=== PATIENT | female | born 1945 | race Caucasian/White ===

== ENCOUNTER 2017-11-12 07:49 | Inpatient (IN) | payer MEDICARE, BC ==
[2017-11-12] MEDS ORDERED: Ibuprofen 200 MG TAB ONE (09:48)
[2017-11-12 10:33] LABS: #Lymphocytes 1.1 thou/uL (1.20-3.40); #Monocytes 0.3 thou/uL (0.11-0.59); #Neutrophils 4.2 thou/uL (1.40-6.50); %Eosinophils 0.3 % (0.0-10.0); %Lymphocytes 19.7 % (21.0-51.0); %Monocytes 5.6 % (0.0-10.0); %Neutrophils 74.4 % (42.0-75.0); Hemoglobin 12.5 g/dL (12.0-16.0); Mean Corpuscular Hemoglobin 32.4 pg (27.0-31.0); Mean Corpuscular Volume 95.3 fl (81.0-99.0); Mean Platelet Volume 6.4 fL (7.4-10.4); Platelet Count 168 thou/uL (130-400); RBC Distribution Width 11.7 % (11.5-14.5); Red Blood Cell (RBC) Count 3.87 mill/uL (4.20-5.40); White Blood Cell (WBC) Count 5.7 thou/uL (4.8-10.8)
[2017-11-12 10:58] LABS: ALT (SGPT) 15 U/L (8-55); AST (SGOT) 26 U/L (5-34); Albumin 3.9 g/dL (3.4-4.8); Alkaline Phosphatase 61 U/L (40-150); Anion Gap 13 mmol/L (10-20); BUN (Urea Nitrogen) 9 mg/dL (9.8-20.1); Bilirubin, Total 0.8 mg/dL (0.2-1.2); Calc. Creatinine Clearance 0 mL/min (70-130); Calcium 8.8 mg/dL (7.8-10.44); Carbon Dioxide 26 mmol/L (23-31); Chloride 98 mmol/L (98-107); Estimated GFR-MDRD 67; Globulin 3.2 g/dL (2.4-3.5); Glucose 110 mg/dL (80-115); Potassium 3.4 mmol/L (3.5-5.1); Protein, Total 7.1 g/dL (6.0-8.3); Sodium 134 mmol/L (136-145)
--- NOTE | 2017-11-12 11:15 | RAD ---
2 VIEWS CHEST: Date: 11/12/17 PROVIDED CLINICAL HISTORY: Cough and fever. FINDINGS: No comparisons. Cardiac silhouette is within normal limits in terms of size. There is hiatal hernia present. There is parenchymal opacity present at the left lung base that may reflect passive atelectasis or pneumonia. Small left pleural effusion is suspected. No evidence for pneumothorax. Lungs appear otherwise clear . Vascular calcification involves the aortic arch. IMPRESSION: 1. Parenchymal opacity left lung base, passive atelectasis versus pneumonia. The latter is favored. 2. Moderate hiatal hernia. POS: [facility]
[2017-11-12] MEDS ORDERED: Bisacodyl 5 MG TAB PO PRN (13:12)
[2017-11-12] MEDS ORDERED: Acetaminophen 650 MG Suppository PR PRN (13:12)
[2017-11-12] MEDS ORDERED: guaiFENesin/Dextromethorphan 10 ML UDCUP PO PRN (13:15)
[2017-11-12] MEDS ORDERED: cefTRIAXone\\ROCEPHIN 1 GM in Sodium Chloride 0.9% 100 ML IVPB SCH (13:15)
[2017-11-12] MEDS ORDERED: Potassium Chloride 20 MEQ TAB PO SCH (13:30)
--- NOTE | 2017-11-12 13:45 | HP ---
PRIMARY CARE PHYSICIAN: Dr. Renny Maldonado in [place], [place] CHIEF COMPLAINT: Cough. HISTORY OF PRESENT ILLNESS: Ms. Pearl is a pleasant 72-year-old lady who was seen at [facility] on 11/12/2017. She reports that her grandson was sick with an upper respiratory tract infection a few days ago. She also reports other family members who were sick. Five days ago, she developed a cough. Cough is pr oductive of white sputum. She also reports fevers, as high as 102.8 degrees Fahrenheit. She denies any vomiting, but reports nausea. She has not been eating well. She denies any diarrhea. She denie s any abdominal pain. She denies any chest pain or shortness of breath. She reports that she has degenerative disease of the cervical spine and is awaiting cervical fusion. She reports severe pain in the neck from coughing. She tried taking extra strength Tylenol, which did not help. She also took Benadryl yesterday. She felt dizzy on waking up. She came to the emergency room because of ongoing complaints. REVIEW OF SYSTEMS: The following complete review of systems was negative, unless otherwise mentioned in the HPI or below: Constitutional: Weight loss or gain, ability to conduct usual activities. Skin: Rash, itching. Eyes: Double vision, pain. ENT/Mouth: Nose bleeding, neck stiffness, pain, tenderness. Cardiovascular: Palpitations, dyspnea on exertion, orthopnea. Respiratory: Shortness of breath, wheezing, cough, hemoptysis, fever or night sweats. Gastrointestinal: Poor appetite, abdominal pain, heartburn, nausea, vomiting, constipation, or diarr hea. Genitourinary: Urgency, frequency, dysuria, nocturia. Musculoskeletal: Pain, swelling. Neurologic/Psychiatric: Anxiety, depression. Allergy/Immunologic: Skin rash, bleeding tendency. PAST MEDICAL HISTORY: Hypothyroidism, arthritis, brain aneurysm, dyslipidemia and hypertension. PAST SURGICAL HISTORY: Back surgery, right wrist surgery and sinus surgery. FAMILY HISTORY: Her mother had heart disease. SOCIAL HISTORY: Patient denies tobacco use, alcohol use or recreational drug use. CODE STATUS: I discussed her code status. She is FULL CODE. Her daughter, Esthela, is the substitute decision maker. ALLERGIES: CODEINE and PENICILLIN. CURRENT MEDICATIONS: Losartan 50 mg daily, Protonix 40 mg daily, metoprolol 50 mg daily, triamterene /hydrochlorothiazide 37.5/25 mg daily, levothyroxine 50 mcg daily. PHYSICAL EXAMINATION: GENERAL: On examination, Ms. Pearl is awake and alert, not in acute distress. VITAL SIGNS: Blood pressure is 113/49, pulse is 79. She is breathing at rate of 18, and saturating 96% on 3 liters of oxygen. Her T-max in the emergency room was 102.8 degrees Fahrenheit. Her oxygen saturation on room air was 88% at 9:15 hours today. EYES: No scleral icterus. No conjunctival pallor. ENT: Moist mucosal membranes, no oropharyngeal erythema or exudates. NECK: Supple, nontender, normal range of movement. Trachea is midline. RESPIRATORY: Accessory muscles of breathing are not active. Chest wall movements are symmetric bila terally. LUNGS: Clear to auscultation without wheeze, rhonchi or crepitations. CARDIOVASCULAR: S1 and S2 are heard, regular. LUNGS: Peripheral pulses palpable. No carotid bruit, no pericardial rub. ABDOMEN: Soft, nontender, bowel sounds are heard, no hepatomegaly, no splenomegaly. NEUROLOGIC: Cranial nerves II-XII intact. Deep tendon reflexes 2+. MUSCULOSKELETAL: Power is 5/5 in all 4 extremities. Normal range of movement at all major extremity joints. SKIN: No rashes or subcutaneous nodules. LYMPHATIC: No cervical lymphadenopathy. PSYCHIATRIC: Normal mood, normal affect. The patient is oriented to person, place, and time. IMAGING DATA AND LABORATORY DATA: Ms. Pearl's labs and investigations were reviewed. I reviewed he r electrocardiogram, which showed normal sinus rhythm, no ST changes to suggest an acute coronary syn drome. I also reviewed her chest x-ray, which shows left lower lobe infiltrate. She has a normal wh ite count, normal hemoglobin, normal platelet count, decreased sodium of 134, decreased potassium of 3.4, otherwise unremarkable comprehensive metabolic profile and a negative influenza screen. ASSESSMENT AND PLAN: Ms. Pearl is a pleasant 72-year-old lady who was seen at [facility] on 11/12/2017. Her problem list includes: 1. Pneumonia: Ms. Pearl is presenting with community-acquired pneumonia. She will be admitted to the hospital because of hypoxia and ongoing fevers. She will be treated with ceftriaxone and azithro mycin. Blood cultures have been sent. 2. Hyponatremia: Mild, we will recheck. 3. Hypokalemia: Replace potassium. 4. Hypertension: Monitor vital signs, titrate antihypertensives as needed. 5. Hypothyroidism: Continue Synthroid. Many thanks for allowing me to participate in your patient's care. Please feel free to contact me wi th any questions or concerns. LEVEL OF RISK: High. LEVEL OF COMPLEXITY: High.
[2017-11-12 15:47] VITALS: BMI 27.6
[2017-11-12] MEDS: cefTRIAXone\\ROCEPHIN 1 GM, Syringe 0.4 ML in Sterile Water 9.6 ML SLOW IVP SCH (16:05)
[2017-11-12] MEDS: Azithromycin 500 MG in Sodium Chloride 0.9% 250 ML 250 ML IVPB SCH (16:05)
[2017-11-12] MEDS: Acetaminophen 325 MG TAB PO PRN ×2 (16:10→20:43)
[2017-11-12] MEDS: Benzonatate 100 MG CAP PO SCH ×2 (16:10→20:43)
[2017-11-12] MEDS ORDERED: FLU VACC TS2017-18 (>65YR) 0.5 ML SYRINGE IM ONE (16:15)
[2017-11-13] MEDS: Acetaminophen 325 MG TAB PO PRN ×2 (00:48→11:36)
[2017-11-13 04:53] LABS: Anion Gap 11 mmol/L (10-20); BUN (Urea Nitrogen) 8 mg/dL (9.8-20.1); Calc. Creatinine Clearance 86 mL/min (70-130); Calcium 8.2 mg/dL (7.8-10.44); Carbon Dioxide 28 mmol/L (23-31); Chloride 97 mmol/L (98-107); Estimated GFR-MDRD 67; Glucose 108 mg/dL (80-115); Potassium 3.3 mmol/L (3.5-5.1); Sodium 133 mmol/L (136-145)
[2017-11-13 05:31] LABS: Band 15 % (5-11); Eosinophils 1 % (0-10); Hemoglobin 11.9 g/dL (12.0-16.0); Lymphocytes 19 % (21-51); MDiff Complete? YES; Mean Corpuscular HGB CONC 34.4 g/dL (32.0-36.0); Mean Platelet Volume 6.7 fL (7.4-10.4); Monocytes 3 % (0-10); Neutrophil 62 % (42-75); PLT Morphology Comment Appears Adequate; Platelet Count 152 thou/uL (130-400); RBC Distribution Width 11.6 % (11.5-14.5); RBC Morphology Normal; Red Blood Cell (RBC) Count 3.59 mill/uL (4.20-5.40); White Blood Cell (WBC) Count 4.7 thou/uL (4.8-10.8)
[2017-11-13] MEDS: Benzonatate 100 MG CAP PO SCH ×3 (07:32→20:47)
[2017-11-13] MEDS: Enoxaparin Sodium 40 MG/0.4 ML SYRINGE SC SCH (07:32)
[2017-11-13] MEDS: Guaifenesin DM 100-10/5 ML UDCUP PO PRN ×2 (11:34→20:48)
[2017-11-13] MEDS: cefTRIAXone\\ROCEPHIN 1 GM, Syringe 0.4 ML in Sterile Water 9.6 ML SLOW IVP SCH (13:34)
[2017-11-13] MEDS: Azithromycin 500 MG in Sodium Chloride 0.9% 250 ML 250 ML IVPB SCH (13:42)
[2017-11-13] MEDS: Sodium Chloride 0.9% 1,000 ML IV SCH (14:11)
[2017-11-13] MEDS: Ibuprofen 800 MG TAB PO SCH ×2 (14:48→20:47)
[2017-11-13] MEDS: Potassium Chloride 20 MEQ TAB PO SCH (17:12)
--- NOTE | 2017-11-13 17:42 | PDOC.PN ---
- Subjective Encounter Start Date: 11/13/17 Encounter Start Time: 17:40 Subjective: COUGH IS SLIGHTLY BETTER BUT I FEEL BAD - Objective Resuscitation Status: Resuscitation Status FULL:Full Resuscitation MAR Reviewed: Yes Vital Signs & Weight: Vital Signs (12 hours) Temp Pulse Resp BP Pulse Ox 11/13/17 16:58 97.8 F 73 18 111/53 L 93 L 11/13/17 12:25 100.4 F H 83 18 113/62 91 L 11/13/17 08:00 99.4 F 88 16 118/73 95 Weight Weight 192 lb 4 oz I&O: 11/12/17 11/13/17 11/14/17 05:59 06:59 06:59 Intake Total 600 Balance 600 Result Diagrams: 11/13/17 04:08 11/13/17 04:08 Phys Exam - Physical Examination Constitutional: NAD HEENT: PERRLA, moist MMs, sclera anicteric Neck: supple, full ROM RHONCHI Cardiovascular: RRR Gastrointestinal: soft, non-tender, no distention Musculoskeletal: no edema Neurological: non-focal, moves all 4 limbs Psychiatric: normal affect, A&O x 3 Skin: no rash Dx/Plan (1) HTN (hypertension) Code(s): I10 - ESSENTIAL (PRIMARY) HYPERTENSION Status: Chronic (2) PNA (pneumonia) Code(s): J18.9 - PNEUMONIA, UNSPECIFIED ORGANISM Status: Acute (3) Hypokalemia Code(s): E87.6 - HYPOKALEMIA Status: Acute (4) Hyponatremia Code(s): E87.1 - HYPO-OSMOLALITY AND HYPONATREMIA Status: Acute - Plan cont current plan of care, plan discussed w/ family, continue antibiotics, respiratory therapy REPLETE ELECTROLYTES * .
[2017-11-13] MEDS: Metoprolol Tartrate 50 MG TAB PO SCH (20:48)
[2017-11-13] MEDS: Albuterol Sulfate 1.25 MG/3 ML NEB NEB SCH (23:34)
[2017-11-14] MEDS: Sodium Chloride 0.9% 1,000 ML IV SCH ×2 (02:21→14:26)
[2017-11-14] MEDS: Acetaminophen 325 MG TAB PO PRN (04:58)
[2017-11-14] MEDS: Guaifenesin DM 100-10/5 ML UDCUP PO PRN ×3 (05:02→22:15)
[2017-11-14 05:14] LABS: Anion Gap 8 mmol/L (10-20); BUN (Urea Nitrogen) 6 mg/dL (9.8-20.1); Calc. Creatinine Clearance 100 mL/min (70-130); Calcium 8.4 mg/dL (7.8-10.44); Carbon Dioxide 31 mmol/L (23-31); Chloride 101 mmol/L (98-107); Estimated GFR-MDRD 80; Glucose 92 mg/dL (80-115); Potassium 3.5 mmol/L (3.5-5.1); Sodium 136 mmol/L (136-145)
[2017-11-14] MEDS: Albuterol Sulfate 1.25 MG/3 ML NEB NEB SCH ×3 (07:01→23:07)
[2017-11-14] MEDS: Losartan 25 MG TAB PO SCH (08:37)
[2017-11-14] MEDS: Metoprolol Tartrate 50 MG TAB PO SCH ×2 (08:38→21:15)
[2017-11-14] MEDS: Ascorbic Acid 500 mg Chewable Tablet PO SCH (08:40)
[2017-11-14] MEDS: Potassium Chloride 20 MEQ TAB PO SCH ×2 (08:41→16:34)
[2017-11-14] MEDS: Benzonatate 100 MG CAP PO SCH ×3 (08:41→21:15)
[2017-11-14] MEDS: Atorvastatin Calcium 40 MG TAB PO SCH (08:41)
[2017-11-14] MEDS: Triamterene/Hydrochlorothiazide 37.5 mg/25 mg Tablet PO SCH (08:41)
[2017-11-14] MEDS: Levothyroxine Sodium 50 MCG TAB PO SCH (08:41)
[2017-11-14] MEDS: Enoxaparin Sodium 40 MG/0.4 ML SYRINGE SC SCH (08:42)
[2017-11-14] MEDS: Ibuprofen 800 MG TAB PO SCH ×3 (08:42→21:15)
[2017-11-14] MEDS: Multivitamin W/ Minerals 1 TAB PO SCH (08:42)
--- NOTE | 2017-11-14 11:34 | PDOC.PN ---
- Subjective Encounter Start Date: 11/14/17 Encounter Start Time: 11:32 Subjective: I FEEL MUCH BETTER, EXCEPT FOR PAIN WITH COUGHING. - Objective Resuscitation Status: Resuscitation Status FULL:Full Resuscitation Vital Signs & Weight: Vital Signs (12 hours) Temp Pulse Resp BP BP Pulse Ox 11/14/17 11:12 98.2 F 70 18 104/68 90 L 11/14/17 08:00 98.6 F 69 16 96/58 L 92 L 11/14/17 07:01 68 14 93 L 11/14/17 06:24 93 L 11/14/17 04:02 100.7 F H 88 18 118/66 91 L 11/14/17 01:59 97.7 F 69 16 102/52 L 91 L 11/13/17 23:34 69 12 91 L Weight Weight 192 lb 4 oz I&O: 11/13/17 11/14/17 11/15/17 06:59 06:59 06:59 Intake Total 600 240 Balance 600 240 Result Diagrams: 11/13/17 04:08 11/14/17 04:42 Phys Exam - Physical Examination Constitutional: NAD HEENT: PERRLA, moist MMs, sclera anicteric Neck: supple, full ROM Respiratory: no rales, no rhonchi Cardiovascular: RRR, no significant murmur Gastrointestinal: soft, non-tender, no distention, positive bowel sounds Musculoskeletal: no edema Neurological: non-focal, normal sensation, moves all 4 limbs Psychiatric: normal affect, A&O x 3 Skin: no rash Dx/Plan (1) HTN (hypertension) Code(s): I10 - ESSENTIAL (PRIMARY) HYPERTENSION Status: Chronic (2) PNA (pneumonia) Code(s): J18.9 - PNEUMONIA, UNSPECIFIED ORGANISM Status: Acute (3) Hypokalemia Code(s): E87.6 - HYPOKALEMIA Status: Acute (4) Hyponatremia Code(s): E87.1 - HYPO-OSMOLALITY AND HYPONATREMIA Status: Acute - Plan cont current plan of care, continue antibiotics, respiratory therapy CONDITION IMPROVED * .
[2017-11-14] MEDS: Azithromycin 500 MG in Sodium Chloride 0.9% 250 ML 250 ML IVPB SCH (14:29)
[2017-11-14] MEDS: cefTRIAXone\\ROCEPHIN 1 GM, Syringe 0.4 ML in Sterile Water 9.6 ML SLOW IVP SCH (14:29)
[2017-11-15] MEDS: Sodium Chloride 0.9% 1,000 ML IV SCH (02:51)
[2017-11-15 05:10] LABS: Anion Gap 10 mmol/L (10-20); BUN (Urea Nitrogen) 7 mg/dL (9.8-20.1); Calc. Creatinine Clearance 106 mL/min (70-130); Calcium 8.5 mg/dL (7.8-10.44); Carbon Dioxide 27 mmol/L (23-31); Chloride 108 mmol/L (98-107); Estimated GFR-MDRD 86; Glucose 85 mg/dL (80-115); Potassium 4.5 mmol/L (3.5-5.1); Sodium 140 mmol/L (136-145)
[2017-11-15] MEDS: Guaifenesin DM 100-10/5 ML UDCUP PO PRN (06:00)
[2017-11-15] MEDS: Levothyroxine Sodium 50 MCG TAB PO SCH (06:06)
[2017-11-15] MEDS: Albuterol Sulfate 1.25 MG/3 ML NEB NEB SCH (06:08)
[2017-11-15] MEDS: Triamterene/Hydrochlorothiazide 37.5 mg/25 mg Tablet PO SCH (09:07)
[2017-11-15] MEDS: Atorvastatin Calcium 40 MG TAB PO SCH (09:07)
[2017-11-15] MEDS: Metoprolol Tartrate 50 MG TAB PO SCH (09:08)
[2017-11-15] MEDS: Losartan 25 MG TAB PO SCH (09:08)
[2017-11-15] MEDS: Potassium Chloride 20 MEQ TAB PO SCH (09:08)
[2017-11-15] MEDS: Ibuprofen 800 MG TAB PO SCH (09:08)
[2017-11-15] MEDS: Ascorbic Acid 500 mg Chewable Tablet PO SCH (09:09)
[2017-11-15] MEDS: Enoxaparin Sodium 40 MG/0.4 ML SYRINGE SC SCH (09:09)
[2017-11-15] MEDS: Benzonatate 100 MG CAP PO SCH (09:09)
[2017-11-15] MEDS: Multivitamin W/ Minerals 1 TAB PO SCH (09:10)
[2017-11-15 11:13] VITALS: BP 127/74; TEMP 98.1
[2017-11-15] MEDS ORDERED: Azithromycin 250 MG TAB PO SCH (14:00)
--- NOTE | 2017-11-15 15:34 | DIS ---
DATE OF ADMISSION: 11/12/2017 DATE OF DISCHARGE: 11/15/2017 PRIMARY DIAGNOSES: Left lower lobe pneumonia. HOSPITAL COURSE: The patient was admitted on with fever, increased shortness of breath, and cou gh. She was noted to have parenchymal opacity in the left lung base consistent with pneumonia. The patient was treated with IV azithromycin as well as Rocephin. Over the course of 3 days, her tempera ture has normalized. The patient was never leukocytotic nor she have a left shift. She did have a b andemia of 15%. The patient was initially hypoxic, but upon discharge, she had O2 saturation greater than 90% on room air. It was deemed that the patient was stable for discharge to home on p.o. azith romycin and close followup with her PCP. DISCHARGE DISPOSITION: To home. DISCHARGE ACTIVITY: As tolerated. DISCHARGE DIET: Regular. DISCHARGE MEDICATIONS: Please see medication reconciliation list. There was a prescription for azit hromycin 250 mg every day for 5 days provided. PHYSICAL EXAMINATION: GENERAL: She was in no acute distress. HEAD: Normocephalic, atraumatic. EYES: PERRL. Extraocular muscles are intact. CARDIAC: Regular rate and rhythm, no murmurs, regurg, gallops. LUNGS: There was no wheezing, but there were rales in the left base and middle lobe. ABDOMEN: Nontender, nondistended. Positive bowel sounds. EXTREMITIES: No clubbing, cyanosis or edema. FOLLOWUP: The patient is to follow up with her PCP within 1 week. CONSULTANTS: None. PROCEDURES: None.
[2017-11-16] MEDS ORDERED: Levothyroxine Sodium 50 MCG TAB PO SCH (06:00)
--- NOTE | 2017-11-19 13:12 | EKG ---
Test Reason : Blood Pressure : / mmHG Vent. Rate : 068 BPM Atrial Rate : 068 BPM P-R Int : 136 ms QRS Dur : 070 ms QT Int : 398 ms P-R-T Axes : -04 048 053 degrees QTc Int : 423 ms Normal sinus rhythm Low voltage QRS Borderline ECG Confirmed by ARIANNA GONZALES ([id number]), electronic news gathering editor HEATHER HORTON ([id number]) on 11/19/2017 1:11:51 PM Referred By: Confirmed By:ARIANNA GONZALES
== END 2017-11-15 11:47 | disposition home or self-care (01) | DRG 194 ==
LOC: ERS 07:49 → T4-B 12:49
PROVIDERS: ADMIT Internal Medicine; ATTEND Internal Medicine
DX: J18.9 Pneumonia, unspecified organism (principal); E87.1 Hypo-osmolality and hyponatremia; E87.6 Hypokalemia; I10 Essential (primary) hypertension; E03.9 Hypothyroidism, unspecified; R09.02 Hypoxemia; E78.5 Hyperlipidemia, unspecified; Z88.5 Allergy status to narcotic agent; Z88.0 Allergy status to penicillin; Z79.899 Other long term (current) drug therapy
CPT/HCPCS: 36415; 71046; 80048; 80053; 85025; 87040; 87804; 93005; 94640; 94760; 96374; A4216; J0456; J0696; J1650; J7050; J7620